=== PATIENT | male | born 1960 | race Caucasian/White ===

== ENCOUNTER 2020-01-02 01:17 | Emergency (ER) | payer MEDICAID ==
[~2020-01-02] VITALS: Ht 180.3 cm; Wt 70.0 kg
[~2020-01-02 01:17] MED LIST: MEDICAL MARIJUANA
[2020-01-02 01:23] VITALS: BP 133/93
[2020-01-02] MEDS ORDERED: TETanus/Pertussis (Acell)/Diphther VAC/PF (Tdap-Adult) 0.5ml syringe IMVAC ONE ×2 (01:30→01:37)
[2020-01-02] MEDS ORDERED: LIDOcaine 1% W/epiNEPHrine 1:200,000 10ml vial IJ ONE (01:30)
[2020-01-02] MEDS ORDERED: LIDOcaine 1% W/epiNEPHrine 1:200,000 10ml vial ONE (01:37)
== END 2020-01-02 02:32 | disposition home or self-care (01) ==
LOC: ER 01:17
DX: S81.811A Laceration without foreign body, right lower leg, initial encounter (principal); G89.29 Other chronic pain; K21.9 Gastro-esophageal reflux disease without esophagitis; F12.90 Cannabis use, unspecified, uncomplicated; F15.90 Other stimulant use, unspecified, uncomplicated; Z87.442 Personal history of urinary calculi; Z98.890 Other specified postprocedural states; Z88.5 Allergy status to narcotic agent; W17.2XXA Fall into hole, initial encounter; Y93.89 Activity, other specified; Y92.89 Other specified places as the place of occurrence of the external cause; Y99.8 Other external cause status
CPT/HCPCS: 12002; 90471; 90715; 99283

== ENCOUNTER 2020-01-28 14:01 | Emergency (ER) | payer MEDICAID ==
[~2020-01-28] VITALS: Ht 180.3 cm; Wt 74.0 kg
[2020-01-28 14:55] VITALS: BP 109/72
== END 2020-01-28 17:00 | disposition home or self-care (01) ==
LOC: ER 14:02
DX: S92.515A Nondisplaced fracture of proximal phalanx of left lesser toe(s), initial encounter for closed fracture (principal); K21.9 Gastro-esophageal reflux disease without esophagitis; G89.29 Other chronic pain; F12.90 Cannabis use, unspecified, uncomplicated; F15.90 Other stimulant use, unspecified, uncomplicated; Z87.442 Personal history of urinary calculi; Z98.890 Other specified postprocedural states; Z88.5 Allergy status to narcotic agent; W22.8XXA Striking against or struck by other objects, initial encounter; Y93.89 Activity, other specified; Y92.89 Other specified places as the place of occurrence of the external cause; Y99.8 Other external cause status
CPT/HCPCS: 73660; 99284

== ENCOUNTER 2022-02-23 14:28 | Emergency (ER) | payer MEDICAID ==
[~2022-02-23] VITALS: Ht 180.3 cm; Wt 77.3 kg
[2022-02-23 14:36] VITALS: BP 143/83
--- NOTE | 2022-02-23 16:52 | NUR ---
lac cleaned with 150ml nacl
== END 2022-02-23 17:11 | disposition home or self-care (01) ==
LOC: ER 14:30
DX: S91.312A Laceration without foreign body, left foot, initial encounter (principal); K21.9 Gastro-esophageal reflux disease without esophagitis; G89.29 Other chronic pain; M54.50 Low back pain, unspecified; F12.90 Cannabis use, unspecified, uncomplicated; F15.20 Other stimulant dependence, uncomplicated; Z88.5 Allergy status to narcotic agent; X58.XXXA Exposure to other specified factors, initial encounter; Y93.89 Activity, other specified; Y92.89 Other specified places as the place of occurrence of the external cause; Y99.8 Other external cause status
CPT/HCPCS: 12002; 99282

== ENCOUNTER 2024-12-27 14:51 | Outpatient (CLI) | payer MEDICARE, MEDICAID ==
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
== END 2024-12-27 23:59 | disposition home or self-care (01) ==
LOC: RAD 14:51
PROVIDERS: ATTEND Family Medicine
DX: S22.080A Wedge compression fracture of T11-T12 vertebra, initial encounter for closed fracture (principal); S22.43XA Multiple fractures of ribs, bilateral, initial encounter for closed fracture; S09.90XA Unspecified injury of head, initial encounter; M43.8X5 Other specified deforming dorsopathies, thoracolumbar region; S32.010A Wedge compression fracture of first lumbar vertebra, initial encounter for closed fracture; M47.814 Spondylosis without myelopathy or radiculopathy, thoracic region; M43.8X4 Other specified deforming dorsopathies, thoracic region; M16.0 Bilateral primary osteoarthritis of hip; M46.1 Sacroiliitis, not elsewhere classified; M48.061 Spinal stenosis, lumbar region without neurogenic claudication; M43.16 Spondylolisthesis, lumbar region; I67.89 Other cerebrovascular disease; V19.9XXA Pedal cyclist (driver) (passenger) injured in unspecified traffic accident, initial encounter; Y92.89 Other specified places as the place of occurrence of the external cause; Y93.89 Activity, other specified; Y99.8 Other external cause status
CPT/HCPCS: 70450; 71100; 72070; 72100; 73502; 73552

== ENCOUNTER 2025-02-06 17:11 | Emergency (ER) | payer MEDICARE, MEDICAID ==
[~2025-02-06] VITALS: Ht 180.3 cm; Wt 68.2 kg
--- NOTE | 2025-02-06 17:46 | ELECTROCARDIOGRAPH REPORT ---
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 Miguel Rivas Measurements Intervals [place] Rate: 91 P: 84 MT: 182 QRS: 84 QRSD: 101 T: 114 QT: 370 QTc: 456 Interpretive Statements Sinus rhythm EDER, consider biatrial enlargement Probable inferior infarct, old Lateral leads are also involved Electronically Signed On 02-07-2025 21:40:[address] Miguel Rivas Please click the below link to view image of tracing.
--- NOTE | 2025-02-06 18:05 | Physician Documentation ---
History of Present Illness ~ Chief Complaint: Dizziness Stated Complaint: MH/SUBSTANCE ABUSE Time Seen by MD: 21:13 HPI This is a 64-year-old male who presents accompanied by his family member, patient is seeking help with methamphetamine abuse though also reports dizziness for the past several months worse when changing positions or walking, patient is reported have an unsteady gait requiring a walker though per family member he often forgets to use his walker in his had frequent falls. Patient's family member as concern for him as his mother recently and patient will be losing his housing in two days due to his mother's house where he lives being sold. Patient is unable to formulate a plan to house himself. Patient reports no suicidal ideation. History as above. Knee says bedside that has a purse full of pamphlets and information regarding resources for the patient. She is a bit frustrated because although she is being pointed two different resources nothing seems to be happening fast enough. He does have a primary care provider. Stop meth this week and she is looking into get him into a rehab facility. Medication Reconciliation Allergies: Coded Allergies: codeine (Verified Adverse Reaction, Unknown, 01/02/20) Miscellaneous Medications [Medical Marijuana], (Reported) Past Medical History Past Medical History: GERD, Kidney Stones, Chronic Back Pain Past Surgical History: orthopedic surgeries Alcohol Use: None Drug Use: marijuana, methamphetamine Lives In: Home Review of Systems ROS As stated above in the HPI, otherwise all systems are reviewed and negative. Physical Exam Vital Signs: Temperature: 98.9, Source: Temporal, Heart Rate: 94, Respiratory Rate: 18, BP: 133/89, Pulse Oximetry: 96, Weight: 68.200 Oxygen Flow Rate: 0 Physical Exam General: Patient is awake, alert, cooperative in no acute distress. Hard of hearing Head: Normocephalic and atraumatic. Eyes: Conjunctival normal. EOMI. PERRL. ENT: Mucous membranes moist. Neck: Supple, trachea is midline. Chest: Clear to auscultation bilaterally without rales, rhonchi, or wheezes. There is no accessory muscle use or retractions. Cardiac: RRR without murmurs, gallops, or rubs. Abd: Soft, nondistended, nontender, with normoactive bowel sounds. No guarding, rebound, or rigidity. Progress Results/Orders Results/Orders Vital Signs 02/06/25 17:31 Temp 98.9 Pulse 94 Resp 18 B/P (MAP) 133/89 Pulse Ox 96 O2 Flow Rate 0 Laboratory Tests Test 02/06/25 18:05 White Blood Count 9.2 Red Blood Count 6.67 H Hemoglobin 12.9 L Hematocrit 40.2 L Mean Corpuscular Volume 60.3 L Mean Corpuscular Hemoglobin 19.3 L Mean Corpuscular Hemoglobin Concent 32.0 L Red Cell Distribution Width 16.4 H Platelet Count 340 Mean Platelet Volume 8.7 Neutrophils (%) (Auto) 78.9 H Lymphocytes (%) (Auto) 14.5 L Monocytes (%) (Auto) 4.8 Eosinophils (%) (Auto) 0.6 Basophils (%) (Auto) 1.2 H Neutrophils # (Auto) 7.3 Lymphocytes # (Auto) 1.3 Monocytes # (Auto) 0.4 Eosinophils # (Auto) 0.1 Basophils # (Auto) 0.1 CBC Comment Sodium Level 140 Potassium Level 3.9 Chloride Level 104 Carbon Dioxide Level 27.8 Anion Gap 8 Blood Urea Nitrogen 26 H Creatinine 0.97 Estimated GFR/1.73 m2 77 BUN/Creatinine Ratio 26.8 H Glucose Level 132 H Calcium Level 8.8 Albumin 3.8 Chemistry Comments Medical Decision Making Findings Patient presents to the emergency room for evaluation as per HPI. That has some degree of dizziness that has been occurring that has described more as equal Librium has been going on for months. Patient's mother that has that has seemed to become homeless and patient has needs his trying to scramble to do what she can that has get him his resources. He recently stopped methamphetamine wants him to be checked into rehab facility. Instructed her we are not a rehab facility but I can medically clear him to go to a rehab facility. She has a lots of resources that has frustrated that time running out. She states he has not the safest at home that has he will occasionally leave the stove on. He has been falling a proximally once a week and he attributes this to his usual dizziness for which primary care that has aware of. Labs reviewed and that has no evidence of medical emergency. I will clear him for rehab facility but ultimately this is a tough case. Instructed that she can can go back during normal business hours and we can consult with case management Differential Dx:Considerations: Include: dehydration, electrolyte imbalance, encephalopathy, hypoglycemia, hypotension, hypovolemia, myasathenia gravis Departure Disposition: HOME / SELF CARE / HOMELESS Impression: Primary Impression: Chronic disequilibrium Condition: Stable Discharge Instructions: Dizziness Additional Instructions: Follow up tomorrow with various resources and call primary care to inquire about oncology social worker. Labs today were reviewed and that has no evidence of major pathologic derangements and patient is medically cleared for rehab facility Referrals: NO PRIMARY CARE PROVIDER (PCP) Signature Scribe Signature: No scribe Attestation: The note accurately reflects work and decisions made by me.Nick Martini MD 02/06/25 21:35 CARL LIPSCOMBP Feb 06, 2025 18:05 NICK MARTINI MD Feb 06, 2025 21:34
[2025-02-06 18:31] LABS: MEAN PLATELET VOLUME 8.7 FL (7.4-10.4); RED CELL DISTRIBUTION WIDTH 16.4 % (11.5-14.5)
[2025-02-06 18:40] LABS: CREATININE 0.97 MG/DL (0.60-1.10); TOTAL CARBON DIOXIDE 27.8 MMOL/L (24-32); eCRCL 72 ML/MIN; eGFR 77 ML/MIN
[2025-02-06 21:48] VITALS: BP 136/77; PULSE 72; RESP 18; TEMP 98.9; O2SAT 98
== END 2025-02-06 21:49 | disposition home or self-care (01) ==
LOC: ER 17:12
DX: E87.8 Other disorders of electrolyte and fluid balance, not elsewhere classified (principal); K21.9 Gastro-esophageal reflux disease without esophagitis; F15.10 Other stimulant abuse, uncomplicated; F12.90 Cannabis use, unspecified, uncomplicated; G89.29 Other chronic pain; Z87.442 Personal history of urinary calculi; Z88.5 Allergy status to narcotic agent; Z98.890 Other specified postprocedural states
CPT/HCPCS: 80048; 85025; 93005; 99284